=== PATIENT | female | born 1960 | race Caucasian/White ===

== ENCOUNTER 2018-01-23 01:51 | Inpatient (IN) | payer OTHER ==
[~2018-01-23] VITALS: Ht 165.1 cm; Wt 56.4 kg
[~2018-01-23 01:51] MED LIST: ALBUTEROL0.09 MG/A1 INH; ALEVE220 MG PO; CALCIUM 600600 M1 PO; DILAUDID 4 MG TA4 MG PO; MAALOX PLUS30 ML PO; MAGNESIUM250 M1 PO; MS CONTIN15 MG PO; PERCOCET 325 MG1 TA2 PO; VENTOLIN1 PUF INH; VITAB121000 PO; VITAMIN C500 M3 PO; VITAMIN D32000 IU PO
--- NOTE | 2018-01-23 01:57 | ED PSYCHIATRIC COMPLAINT ---
See Addendum History of Present Illness General Chief Complaint: Psychiatric Related Complaint Stated Complaint: SI Source: patient, old records, EMS Exam Limitations: no limitations, intoxication Vital Signs & Intake/Output Vital Signs & Intake/Output Vital Signs Date Time Temp Pulse Resp B/P B/P Pulse O2 O2 Flow FiO2 Mean Ox Delivery Rate 01/23 0631 97.5 89 16 141/69 100 Room Air 01/23 0430 96.2 66 18 109/63 96 Room Air 01/23 0210 Room Air 01/23 0206 96.4 66 18 126/64 97 Room Air Reconcile Medications Albuterol Sulfate (Albuterol Sulfate Hfa) 0.09 MG/Actuation DONTRELL 2 PUFF INH Q4- 6 PRN PRN SHORTNESS OF BREATH 90 MCG PER PUFF Ascorbic Acid (Vitamin C) 500 MG TAB 1 TAB PO DAILY SUPPLEMENT (Reported) Calcium Carbonate (Calcium 600) 600 MG TAB 2,000 MG PO DAILY SUPPLEMENT ( Reported) Cyanocobalamin (Vitamin B-12) (Unknown Strength) TAB (Unknown Dose) PO DAILY SUPPLEMENT (Reported) Magnesium (Unknown Strength) TAB (Unknown Dose) PO DAILY SUPPLEMENT (Reported ) Triage Nurses Notes Reviewed? yes HPI: Patient took approximately 60 Chantix, 2 Percocet and 1 other pill that she doesn't know what it was as well as alcohol in an effort to kill herself. Patient states she did this because of income tax and that it is the IRS's fault. Patient denies ever having attempted anything in the past. Patient denies homicidal ideation. (Vicente PRO,Rocael Reardon) Allergies Coded Allergies: Iodinated Contrast- Oral and IV Dye (UNKNOWN 01/23/18) amoxicillin (UNKNOWN 01/23/18) niacin (FELT LIKE BODY ON FIRE FOR HOURS, FAINTING 01/23/18) (Odell Argueta DO) Past History Travel History Traveled to [place] past 21 day No Medical History Any Pertinent Medical History? 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 No (Vicente PRO,Rocael Reardon) Review of Systems Review of Systems Constitutional: Reports: no symptoms. EENTM: Reports: no symptoms. Respiratory: Reports: no symptoms. Cardiovascular: Reports: no symptoms. GI: Reports: see HPI, nausea, vomiting. Genitourinary: Reports: no symptoms. Musculoskeletal: Reports: no symptoms. Skin: Reports: no symptoms. Neurological/Psychological: Reports: see HPI, depressed. Hematologic/Endocrine: Reports: no symptoms. Immunologic/Allergic: Reports: no symptoms. All Other Systems: Reviewed and Negative (Vicente PRO,Rocael Reardon) Physical Exam Physical Exam General Appearance: well developed/nourished, mild distress Head: atraumatic Eyes: Bilateral: PERRL, EOMI. Ears, Nose, Throat: normal pharynx, normal ENT inspection, hearing grossly normal Neck: normal inspection, supple Respiratory: normal breath sounds Cardiovascular: regular rate/rhythm Gastrointestinal: soft, non-tender Extremities: normal range of motion Neurological/Psychiatric: no motor/sensory deficits, awake, alert, oriented x 3 Appearance/Memory/Insight: appropriate appearance, appropriate insight Behavoir/Eye Contact/Speech: cooperative, normal speech, good eye contact Thoughts/Hallucinations: normal thought pattern, no apparent hallucination Skin: intact, normal color, warm/dry SAD PERSONS Done? CRISIS CONSULT OBTAINED (Vicente PRO,Rocael Reardon) Progress Differential Diagnosis: drug intoxication, drug overdose, drug withdrawal, electrolyte abnormality Plan of Care: Orders Procedure Date/time Status Regular Diet 01/23 B Active Add-on Test (ER Only) 01/24 208 Active Continuous Observation Monitor 01/24 156 Active URINE DRUGS OF ABUSE 01/24 156 Complete URINALYSIS 01/24 156 Complete ACETOMINOPHEN 01/24 156 Complete TROPONIN LEVEL 01/24 156 Complete ETHANOL 01/24 156 Complete COMPREHENSIVE METABOLIC PANEL 01/24 156 Complete CBC WITHOUT DIFFERENTIAL 01/24 156 Complete EKG 01/24 156 Active ED CRISIS PSYCH CONSULT 01/24 156 Active Laboratory Tests 01/23/18 0335: Urine Opiates Screen 963.00, Methadone Screen < 40, Barbiturate Screen < 60, Ur Phencyclidine Scrn < 6.00, Amphetamines Screen < 100, U Benzodiazepines Scrn < 85, Urine Cocaine Screen < 50, Urine Cannabis Screen 33.00, Urine Color YEL, Urine Clarity CLEAR, Urine pH 6.0, Ur Specific [place] >= 1.030, Urine Protein NEG, Urine Ketones 15 H, Urine Nitrite NEG, Urine Bilirubin NEG, Urine Urobilinogen 0.2, Ur Leukocyte Esterase NEG, Ur Microscopic EXAM NOT REQUIRED, Urine Hemoglobin NEG, Urine Glucose NEG 01/23/18 0210: Anion Gap 23 H, Estimated GFR > 60, BUN/Creatinine Ratio 20.0, Glucose 129 H, Calcium 9.5, Total Bilirubin 0.8, AST 28, ALT 20, Alkaline Phosphatase 95, Troponin I < 0.01, Total Protein 7.6, Albumin 4.9, Globulin 2.7, Albumin/ Globulin Ratio 1.8, CBC w Diff NO MAN DIFF REQ, MPV 6.5 L, Gran % 61.5, Lymphocytes % 33.8, Monocytes % 3.3, Eosinophils % 0.6, Basophils % 0.8, Absolute Granulocytes 5.4, Absolute Lymphocytes 3.0, Absolute Monocytes 0.3, Absolute Eosinophils 0.1, Absolute Basophils 0.1, Acetaminophen < 10.0 L, Serum Alcohol 230.0 Hand-Off Endorsed To: Odell Argueta DO Endorsed Time: 0700 Pending: consult (Vicente PRO,Rocale Reardon) Departure Departure Disposition: STILL A PATIENT Condition: Stable Clinical Impression Primary Impression: Suicide attempt Referrals: Torin Koch MD (PCP/Family) Departure Forms: Customer Survey General Discharge Information (Vicente PRO,Rocael Reardon) Departure Comments 01/23/18 7:50 AM The patient was signed out to me by Dr. Boyd. She status post Chantix overdose. She's been medically cleared. She is pending crisis evaluation. (Odell Argueta DO)
[2018-01-23 02:19] LABS: ABSOLUTE BASOPHIL COUNT 0.1 /CUMM (0.0-0.2); ABSOLUTE EOSINOPHIL COUNT 0.1 /CUMM (0.0-0.7); ABSOLUTE GRANULOCYTE CT 5.4 /CUMM (1.4-6.5); ABSOLUTE MONOCYTE COUNT 0.3 /CUMM (0.10-0.60); BASOPHIL % 0.8 % (0.0-2.0); EOSINOPHIL % 0.6 % (0-5); MEAN PLATELET VOLUME 6.5 FL (7.4-10.4); PLATELET COUNT 496 /CUMM (130-400)
[2018-01-23 02:55] LABS: GRANULOCYTE % 61.5 % (42.2-75.2); HEMATOCRIT 42 % (37-47)
[2018-01-23 02:56] LABS: WHITE BLOOD CELL COUNT 8.8 /CUMM (4.8-10.8)
--- NOTE | 2018-01-23 12:31 | ED PSYCH CRISIS CONSULTATION ---
Crisis Consult Basic Assessment Date of Consult: 01/23/18 Responsible Person/Accompanied By: brotherCarrington Insurance Authorization: Insurance #1: Insurance name: SELF-PAY Phone number: Policy number: Group number: Authorization number: ED Provider: Patient's ED Provider: Odell Argueta DO Primary Care Physician: Patient's PCP: Torin Koch MD PCP's Current Psychiatrist: none Chief Complaint: Psychiatric Related Financial stress Patient's Quote: "I am screwed financially" Present Illness: Patient is a 57 year old , who called ambulance after she had taken Chantix (she thinks 60 tabs) and 2 percocets, after having had a considerable amount to drink in order to "get up the courage to take the pills. 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 Patient reports that she just barely gets by on the money that she has, and that she has no insurance, and has no idea how she can pay the IRS. Patient lives alone, since her had about 15 years ago. Patient has minimal pension from ($200.00/month), and has a number of physical problems including serious pain, osteoporosis, and pain from a broken arm years ago. Patient states that she sees herself in a wheelchair in the future, and indicates that she has no one to help her, nor provide any real support. Patient reports having had 2 relationships since when she was 38, but states that "one broke my heart, and the other was not a good match". Patient states that gradually her friends drifted away after husbands , as they were couples. She also states that dating world is not "a good place for someone like me to be". Patient states that her family are involved with their own problems, and she is horrified that they will find out, and does not want to cause them any problems. Patient had seen a psychiatrist after her suddenly from a heart attack, and was on anti-depressant. She improved over a couple years and stopped. No other psychiatric treatment. Patient had some physical pain, and was on percocet and fentanyl, but weaned self off. Patient states that she does have 2 drinks (vodka) many nights, and this has occurred over the past 7 years. Patient denies any other substance use, stating that she had had 2 "left over percocets" that she took last night. Patient is fully alert and oriented x 3. Patient's Address: [address] [place] [address] Other Phone Number: Who Do You Live With? Patient/Self Family/Informants Interviewed: brother, Carrington Adrian Allergies - Coded Allergies: Iodinated Contrast- Oral and IV Dye (UNKNOWN 01/23/18) amoxicillin (UNKNOWN 01/23/18) niacin (FELT LIKE BODY ON FIRE FOR HOURS, FAINTING 01/23/18) Current Medications - Scheduled Medications Ascorbic Acid (Vitamin C) 500 MG TAB 1 TAB PO DAILY SUPPLEMENT (Reported) Entered as Reported by Esperanza Solis on 09/28/152147 Calcium Carbonate (Calcium 600) 600 MG TAB 2,000 MG PO DAILY SUPPLEMENT ( Reported) Entered as Reported by Esperanza Solis on 09/28/152147 Cyanocobalamin (Vitamin B-12) (Unknown Strength) TAB (Unknown Dose) PO DAILY SUPPLEMENT (Reported) Entered as Reported by Esperanza Solis on 09/28/152146 Magnesium (Unknown Strength) TAB (Unknown Dose) PO DAILY SUPPLEMENT (Reported ) Entered as Reported by Esperanza Solis on 09/28/152146 Scheduled PRN Medications Albuterol Sulfate (Albuterol Sulfate Hfa) 0.09 MG/Actuation DONTRELL 2 PUFF INH Q4- 6 PRN PRN SHORTNESS OF BREATH #1 DONTRELL Prescribed by Milady Dinh on 10/04/15 Laboratory Results: Laboratory Tests 01/23/18 0335: Urine Opiates Screen 963.00, Methadone Screen < 40, Barbiturate Screen < 60, Ur Phencyclidine Scrn < 6.00, Amphetamines Screen < 100, U Benzodiazepines Scrn < 85, Urine Cocaine Screen < 50, Urine Cannabis Screen 33.00, Urine Color YEL, Urine Clarity CLEAR, Urine pH 6.0, Ur Specific [place] >= 1.030, Urine Protein NEG, Urine Ketones 15 H, Urine Nitrite NEG, Urine Bilirubin NEG, Urine Urobilinogen 0.2, Ur Leukocyte Esterase NEG, Ur Microscopic EXAM NOT REQUIRED, Urine Hemoglobin NEG, Urine Glucose NEG 01/23/18 0210: Anion Gap 23 H, Estimated GFR > 60, BUN/Creatinine Ratio 20.0, Glucose 129 H, Calcium 9.5, Total Bilirubin 0.8, AST 28, ALT 20, Alkaline Phosphatase 95, Troponin I < 0.01, Total Protein 7.6, Albumin 4.9, Globulin 2.7, Albumin/ Globulin Ratio 1.8, CBC w Diff NO MAN DIFF REQ, MPV 6.5 L, Gran % 61.5, Lymphocytes % 33.8, Monocytes % 3.3, Eosinophils % 0.6, Basophils % 0.8, Absolute Granulocytes 5.4, Absolute Lymphocytes 3.0, Absolute Monocytes 0.3, Absolute Eosinophils 0.1, Absolute Basophils 0.1, Acetaminophen < 10.0 L, Serum Alcohol 230.0 Past History Past Medical History Neurological: NONE EENT: NONE Cardiovascular: NONE Respiratory: asthma, bronchitis Gastrointestinal: INDIGESTION Hepatic: NONE Renal: NONE Musculoskeletal: fracture, osteoporosis Psychiatric: alcohol dependence, anxiety, depression Endocrine: NONE Blood Disorders: NONE Cancer(s): NONE 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 Reason for Treatment husbands sudden . Dates of Treatment 9169-0657 Response to Treatment good Diagnosis by History: depression adjustment issues Substance Use/Abuse History Drug Use/Abuse Substances Used/Abused Yes Substance Used/Abused Alcohol First Use 17 Last Used yesterday How much used/taken patient states has 2 drinks vodka at night, 4-5 nights/ wk. How often 4-5 nights/wk. For how long past 7 years Route of use p.o. Substance Abuse Treatment Substance Abuse Treatment Past Substance Abuse [place] No Current Mental Status Mental Status Orientation: Person, Place, Situation Affect: Anxious, Sad Speech: WNL Neuro-vegetative: WNL Appearance Appearance- Dress/Hygiene: appears stated age Behaviors Thought Process: Logical/Rational Thought Content: WNL Memory: WNL Insight: Fair SI/HI Risk Assessment Past Suicidal Ideation/Attempts No Current Suicidal Ideation/Att Yes Past Homicidal Ideation/Att: No Current Homicidal Ideation/Attempts No Degree of Intent: Made Preparations (took overdose) Danger To: Self Risk Factors: access to lethal means, high anxiety/distress, isolate/no social support, lives alone, limited support Lethality Ratin PTSD Checklist PTSD Done? patient declined ED Management Sitter: Yes Restraints: No DSM5/PS Stressors/Medical Prob Diagnosis' (DSM 5, Stressors, Medical): Unspecified Depressive D.O. F 32.9 Current GAF: 27 Comments: patient has many stressors Departure Disposition Psych Medical Clearance Date: 01/23/18 Medically Cleared at: 1110 Time Started: 1115 Time Ended: 1200 Psychiatrist Consulted: Wally Mccarty MD Date Disposition Established: 01/23/18 Time Disposition Established: 1255 Plan for Disposition - Modality: Inpatient Psychiatry Facility: [facility] Rationale for Disposition: patient s/p overdose and suicide attempt Referrals Torin Koch MD (PCP/Family)
[2018-01-23 13:39] VITALS: BP 133/70
--- NOTE | 2018-01-23 15:21 | IP CRISIS DIAG ASSESS PSYCH ---
Diagnostic Assessment Basic Assessment Insurance Authorization: Insurance #1: Insurance name: SELF-PAY Phone number: Policy number: [id number] Group number: Authorization number: submitted. Primary Care Physician: Patient's PCP: Torin Koch MD PCP's Patient's Quote: "I am screwed financially" Present Illness: Patient is a 57 year old , who called ambulance after she had taken Chantix (she thinks 60 tabs) and 2 percocets, after having had a considerable amount to drink in order to "get up the courage to take the pills. 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 Patient reports that she just barely gets by on the money that she has, and that she has no insurance, and has no idea how she can pay the IRS. Patient lives alone, since her had about 15 years ago. Patient has minimal pension from ($200.00/month), and has a number of physical problems including serious pain, osteoporosis, and pain from a broken arm years ago. Patient states that she sees herself in a wheelchair in the future, and indicates that she has no one to help her, nor provide any real support. Patient reports having had 2 relationships since when she was 38, but states that "one broke my heart, and the other was not a good match". Patient states that gradually her friends drifted away after husbands , as they were couples. She also states that dating world is not "a good place for someone like me to be". Patient states that her family are involved with their own problems, and she is horrified that they will find out, and does not want to cause them any problems. Patient had seen a psychiatrist after her suddenly from a heart attack, and was on anti-depressant. She improved over a couple years and stopped. No other psychiatric treatment. Patient had some physical pain, and was on percocet and fentanyl, but weaned self off. Patient states that she does have 2 drinks (vodka) many nights, and this has occurred over the past 7 years. Patient denies any other substance use, stating that she had had 2 "left over percocets" that she took last night. Patient is fully alert and oriented x 3. Patient's Address: [address] [place] [address] Other Phone Number: Who Do You Live With? Patient/Self Feel Safe Where You Live? Yes Feel Safe in Your Relationship Yes Marital Status: Do You Have Children? No Primary Language? Colombian Language(s) Spoken At Home: Colombian Family/Informants Interviewed: brother, Carrington Adrian Allergies - Coded Allergies: Iodinated Contrast- Oral and IV Dye (UNKNOWN 01/23/18) amoxicillin (UNKNOWN 01/23/18) niacin (FELT LIKE BODY ON FIRE FOR HOURS, FAINTING 01/23/18) Current Medications - Scheduled Medications Ascorbic Acid (Vitamin C) 500 MG TAB 1 TAB PO DAILY SUPPLEMENT (Reported) Entered as Reported by Esperanza Solis on 09/28/152147 Calcium Carbonate (Calcium 600) 600 MG TAB 2,000 MG PO DAILY SUPPLEMENT ( Reported) Entered as Reported by Esperanza Solis on 09/28/152147 Cyanocobalamin (Vitamin B-12) (Unknown Strength) TAB (Unknown Dose) PO DAILY SUPPLEMENT (Reported) Entered as Reported by Esperanza Solis on 09/28/152146 Magnesium (Unknown Strength) TAB (Unknown Dose) PO DAILY SUPPLEMENT (Reported ) Entered as Reported by Esperanza Solis on 09/28/152146 Scheduled PRN Medications Albuterol Sulfate (Albuterol Sulfate Hfa) 0.09 MG/Actuation DONTRELL 2 PUFF INH Q4- 6 PRN PRN SHORTNESS OF BREATH #1 DONTRELL Prescribed by Milady Dinh on 10/04/15 Consequences of Psych Med Use: not on meds Lab Results: Laboratory Tests 01/23/18 0335: Urine Opiates Screen 963.00, Methadone Screen < 40, Barbiturate Screen < 60, Ur Phencyclidine Scrn < 6.00, Amphetamines Screen < 100, U Benzodiazepines Scrn < 85, Urine Cocaine Screen < 50, Urine Cannabis Screen 33.00, Urine Color YEL, Urine Clarity CLEAR, Urine pH 6.0, Ur Specific [place] >= 1.030, Urine Protein NEG, Urine Ketones 15 H, Urine Nitrite NEG, Urine Bilirubin NEG, Urine Urobilinogen 0.2, Ur Leukocyte Esterase NEG, Ur Microscopic EXAM NOT REQUIRED, Urine Hemoglobin NEG, Urine Glucose NEG 01/23/18 0210: Anion Gap 23 H, Estimated GFR > 60, BUN/Creatinine Ratio 20.0, Glucose 129 H, Hemoglobin A1c 5.1, Calcium 9.5, Total Bilirubin 0.8, AST 28, ALT 20, Alkaline Phosphatase 95, Troponin I < 0.01, Total Protein 7.6, Albumin 4.9, Globulin 2.7, Albumin/Globulin Ratio 1.8, Triglycerides 440 H, Cholesterol 152, LDL Cholesterol Direct 46.22, LDL Cholesterol, Calc ND, HDL Cholesterol 55, Cholesterol/HDL Ratio 3, TSH &T3 &Free T4 Intrp 2.050, CBC w Diff NO MAN DIFF REQ, MPV 6.5 L, Gran % 61.5, Lymphocytes % 33.8, Monocytes % 3.3, Eosinophils % 0.6, Basophils % 0.8, Absolute Granulocytes 5.4, Absolute Lymphocytes 3.0, Absolute Monocytes 0.3, Absolute Eosinophils 0.1, Absolute Basophils 0.1, Acetaminophen < 10.0 L, Serum Alcohol 230.0 Toxicology Screen Completed? Yes Results: positive Symptoms of Use: patient drinks 4-5 nights per week. patient also took 2 percocets from previous prescription Past History Past Medical History Medical History: osteoporsis Abuse/Trauma History Trauma History/Current Trauma: Denies Legal History Current Legal Status: none Have you ever been arrested? No Number of Arrests: 0 Psychosocial History Strengths/Capabilities: patient has been employed for many years patient has been self reliant Physical Limitations (Interventions): has mobility issues Psychiatric Treatment History Psych Treatment Psychiatric Treatment Yes Inpatient Treatment No Outpatient Treatment Yes Location of Treatment [place] Reason for Treatment husbands sudden . Dates of Treatment 5531-7451 Response to Treatment good Diagnosis by History: depression adjustment issues Risk Factors: access to lethal means, high anxiety/distress, isolate/no social support, lives alone, limited support Substance Use/Abuse History Drug Use/Abuse minimum 12mo Hx Substances Used/Abused Yes Substance Used/Abused Alcohol First Use 16 Last Used yesterday How much used/taken patient states has 2 drinks vodka at night, 4-5 nights/ wk. How often 4-5 nights/wk. For how long past 7 years Route of use p.o. Substance Abuse Treatment Substance Abuse Treatment Past Substance Abuse [place] No Sexual History Sexually Active No Sexual Orientation Heterosexual Current Mental Status Mental Status Orientation: Person, Place, Situation Affect: Anxious, Sad Speech: WNL Neuro-vegetative: WNL Appearance Appearance- Dress/Hygiene: appears stated age Behaviors Thought Process: Logical/Rational Thought Content: WNL Memory: WNL Insight: Fair SI/HI Risk Assessment - Minimum 6mo History- Past Suicidal Ideation/Attempts No Current Suicidal Ideation/Att Yes Past Homicidal Ideation/Att: No Current Homicidal Ideation/Attempts No Degree of Intent: Made Preparations (took overdose) Danger To: Self Risk Factors: access to lethal means, high anxiety/distress, isolate/no social support, lives alone, limited support Lethality Ratin Needs/Init [place] Plan/Goals: Admit to [facility] due to overdose. Danger to self Medication and psychiatric evaluation. Group and individual therapy Arrange family meeting, although patient is resistant at present assist patient with insurance application coordinate follow-up treatment, with consideration of financial situation and obligations. AUDIT-C Questionnaire: AUDIT-C Questionnaire: Response Value ETOH use in the past year 4 or more per week 4 # drinks typical/day 3 or 4 1 6 or > drinks per occasion Less than monthly 1 Total 6 DSM5/PS Stressors/Medical Prob Diagnosis' (DSM 5, Stressors, Medical): Unspecified Depressive D.O. F 32.9 Current GAF: 27 Comments: patient has many stressors
[2018-01-23 15:42] VITALS: BP 135/79
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
[2018-01-23 17:23] VITALS: BP 135/84
[2018-01-23 17:25] VITALS: BP 135/84
[2018-01-23] MEDS ORDERED: MULTIVITAMINS1 EAC9 PO (18:02)
[2018-01-23] MEDS ORDERED: CALCIUM PO (18:07)
[2018-01-23] MEDS ORDERED: VITAMIN D3400 UNI1 PO (18:09)
[2018-01-23 20:00] VITALS: BP 145/91
[2018-01-23 20:08] VITALS: BP 145/91
--- NOTE | 2018-01-23 20:38 | History & Physical ---
General Information and HPI MD Statement: I have seen and personally examined CANDICE LOMAS and documented this H&P. The patient is a 57 year old F who presented with a patient stated chief complaint of [ medical evaluation ]. Source of Information: patient Exam Limitations: no limitations History of Present Illness: 57 Y O F with PMHx osteoporosis (premature menopause and Prednisone treatment in the past for PMR), multiple fractures presented in ER for SI and depression. She took approximately 60 Chantix, 2 Percocet and 1 other pill that she doesn't know. No complains. currently feeling better, no SI, HI or hallucinations. She smoke 1/2 to 1 PPD. She drinks 4 times a week, 2 drinks daily Denied illicit drugs. No CP/ Cough / fever/ chills / N/ V/ D / skin rash/ Urinary symptoms/ abdo pain. Allergies/Medications Allergies: Coded Allergies: Iodinated Contrast- Oral and IV Dye (UNKNOWN 01/23/18) amoxicillin (UNKNOWN 01/23/18) niacin (FELT LIKE BODY ON FIRE FOR HOURS, FAINTING 01/23/18) Home Med list Ascorbic Acid (Vitamin C) 500 MG TAB 1 TAB PO DAILY SUPPLEMENT (Reported) [CALCIUM] 1 TAB PO DAILY SUPPLEMENT (Reported) Cholecalciferol (Vitamin D3) (Vitamin D3) 400 UNIT TABLET 3 TAB PO DAILY SUPPLEMENT (Reported) Cyanocobalamin (Vitamin B-12) (Unknown Strength) TAB (Unknown Dose) PO DAILY SUPPLEMENT (Reported) Magnesium (Unknown Strength) TAB (Unknown Dose) PO DAILY SUPPLEMENT (Reported ) Multiple Vitamin (Multivitamins) 1 EACH TABLET 1 TAB PO DAILY SUPPLEMENT ( Reported) Compliance With Home Meds: GOOD Past History Travel History Traveled to [place] past 21 day No Medical History Neurological: NONE EENT: NONE Cardiovascular: NONE Respiratory: asthma, bronchitis, SMOKER Gastrointestinal: GERD Hepatic: NONE Renal: NONE Musculoskeletal: osteoporosis, FRACTURE RIGHT LEG 2011 FRACTURE RIGHT ARM 2016 Psychiatric: alcohol dependence, anxiety, depression Endocrine: NONE Blood Disorders: NONE Cancer(s): NONE 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 Home Who Do You Live With? self Services at Home: None Primary Language: Serbian Smoking Status: Current Everyday Smoker ETOH Use: heavy use Illicit Drug Use: denies illicit drug use Functional Ability ADLs Independent: dressing, eating, toileting, bathing. Ambulation: independent IADLs Independent: shopping, housework, finances, food prep, telephone, transportation , medication admin. 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 Exam & Diagnostic Data Last 24 Hrs of Vital Signs/I&O Vital Signs Date Time Temp Pulse Resp B/P B/P Pulse O2 O2 Flow FiO2 Mean Ox Delivery Rate 01/24 2008 99.2 97 145/91 01/24 2000 99.2 97 145/91 01/23 1725 99.5 78 135/84 01/23 1723 99.5 78 135/84 01/23 1542 98.0 80 18 135/79 01/23 1541 98.0 80 18 135/79 01/23 1339 98.4 81 18 133/70 01/23 1315 98.4 81 18 133/70 97 01/23 1029 98.0 97 18 124/73 97 Room Air 01/23 0822 98.4 88 22 131/80 98 Room Air 01/23 0631 97.5 89 16 141/69 100 Room Air 01/23 0430 96.2 66 18 109/63 96 Room Air 01/23 0210 Room Air 01/23 0206 96.4 66 18 126/64 97 Room Air Intake & Output 01/23 0000 01/23 0800 01/23 1600 Intake Total 2000 Output Total Balance 1999 Intake, IV 1999 Patient 58.967 kg Weight Physical Exam General Appearance Alert, Oriented X3, Cooperative, No Acute Distress Skin No Rashes, No Breakdown HEENT Atraumatic, PERRLA, EOMI, Mucous Membr. moist/pink Neck Supple, No JVD, No thryomegaly Lymphatic Axillary nl, Cervical nl Cardiovascular Regular Rate, Normal S1, Normal S2, No Murmurs Lungs Clear to Auscultation, Normal Air Movement Abdomen Normal Bowel Sounds, Soft, No Tenderness Neurological Exam Findings: Normal Gait, Normal Speech, Strength at 5/5 X4 Ext, Normal Tone, Sensation Intact, Cranial Nerves 3-12 NL, Reflexes 2+ Cranial Nerves II through XII: 3 to 12 intact Extremities No Clubbing, No Cyanosis, No Edema, Normal Pulses, No Tenderness/ Swelling Vascular Normal Pulses, Pulses Symmetrical Last 24 Hrs of Labs/Kei: Laboratory Tests 01/23/18334: Urine Test NEGATIVE 01/23/18334: Urine Opiates Screen 963.00, Methadone Screen < 40, Barbiturate Screen < 60, Ur Phencyclidine Scrn < 6.00, Amphetamines Screen < 100, U Benzodiazepines Scrn < 85, Urine Cocaine Screen < 50, Urine Cannabis Screen 33.00, Urine Color YEL, Urine Clarity CLEAR, Urine pH 6.0, Ur Specific [place] >= 1.030, Urine Protein NEG, Urine Ketones 15 H, Urine Nitrite NEG, Urine Bilirubin NEG, Urine Urobilinogen 0.2, Ur Leukocyte Esterase NEG, Ur Microscopic EXAM NOT REQUIRED, Urine Hemoglobin NEG, Urine Glucose NEG 01/23/18 0210: Anion Gap 23 H, Estimated GFR > 60, BUN/Creatinine Ratio 20.0, Glucose 129 H, Hemoglobin A1c 5.1, Calcium 9.5, Total Bilirubin 0.8, AST 28, ALT 20, Alkaline Phosphatase 95, Troponin I < 0.01, Total Protein 7.6, Albumin 4.9, Globulin 2.7, Albumin/Globulin Ratio 1.8, Triglycerides 440 H, Cholesterol 152, LDL Cholesterol Direct 46.22, LDL Cholesterol, Calc ND, HDL Cholesterol 55, Cholesterol/HDL Ratio 3, TSH &T3 &Free T4 Intrp 2.050, CBC w Diff NO MAN DIFF REQ, MPV 6.5 L, Gran % 61.5, Lymphocytes % 33.8, Monocytes % 3.3, Eosinophils % 0.6, Basophils % 0.8, Absolute Granulocytes 5.4, Absolute Lymphocytes 3.0, Absolute Monocytes 0.3, Absolute Eosinophils 0.1, Absolute Basophils 0.1, Acetaminophen < 10.0 L, Serum Alcohol 230.0 Assessment/Plan Assessment: # SI and Depression : agree with Psych plan # Anion gap acidosis : secondary to alcohol, continue oral hydration # Cold agglutinin and Thrombocytosis : repeat CBC in Am # high Triglyceride : fasting lipid profile # Osteoporosis : patient currently not on any treatment because of insurance issues. As Ranked By This Provider Problem List: 1. Suicide attempt 2. Alcohol abuse 3. Depression Miscellaneous Miscellaneous Documentation Attending Case Discussed With: Wally Mccarty MD Primary Care Physician: Torin Koch MD Patient sees these Specialists None Level of Patient Care: ELIZA Sidhu Attending MD Review Statement Attending Statement Attending MD Statement: I interviewed and noted H and P
[2018-01-24] VITALS (8 sets, daily range): BP systolic 140–147; BP diastolic 78–96
--- NOTE | 2018-01-24 08:05 | CPS PROVIDER INIT ASMT PSYCH ---
Psychiatric Admission Ground Wirer's Note Reviewed: Yes Patient Seen and Examined: Yes Identifying Information: Barbie Schultz is a 57-year-old female Chief Complaint: "I am screwed financially" Reaction to Hospitalization: pt. admitted voluntarily History of Present Illness Onset of Illness: called ambulance after she had taken Chantix (she thinks 60 tabs) and 2 percocets, after having had a considerable amount to drink in order to "get up the courage to take the pills. 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 Patient reports that she just barely gets by on the money that she has, and that she has no insurance, and has no idea how she can pay the IRS. Patient lives alone, since her had about 15 years ago. Patient has minimal pension from ($200.00/month), and has a number of physical problems including serious pain, osteoporosis, and pain from a broken arm years ago. Patient states that she sees herself in a wheelchair in the future, and indicates that she has no one to help her, nor provide any real support. Circumstances Leading to Admission: Overdose on Chantix and Percocets Problem(s) Justifying Need for Admission: Overdose on Chantix and Percocets Other HPI: Patient reports having had 2 relationships since when she was 38, but states that "one broke my heart, and the other was not a good match". Patient states that gradually her friends drifted away after husbands , as they were couples. She also states that dating world is not "a good place for someone like me to be". Patient states that her family are involved with their own problems, and she is horrified that they will find out, and does not want to cause them any problems. Patient had seen a psychiatrist after her suddenly from a heart attack, and was on anti-depressant. She improved over a couple years and stopped. No other psychiatric treatment. Patient had some physical pain, and was on percocet and fentanyl, but weaned self off. Patient states that she does have 2 drinks (vodka) many nights, and this has occurred over the past 7 years. Patient denies any other substance use, stating that she had had 2 "left over percocets" that she took last night. Past Psychiatric History Past Diagnosis(es)- if any: depression adjustment issues Past Precipitating Factors- if any: Mood seems that drinking was at least partly part of the precipitating factors. Also financial difficulties. - Include inpatient and outpatient treatment Treatment History: Ella the patient received the outpatient psychiatric treatment in the [facility] in 1998 and 2000 reportedly following her 's sudden . History of Suicide Attempts or Gestures Reportedly this was her first suicide attempt. Substance Abuse History: Alcohol use disorder. Denied abusing opiates. Allergies: Coded Allergies: Iodinated Contrast- Oral and IV Dye (UNKNOWN 01/23/18) amoxicillin (UNKNOWN 01/23/18) niacin (FELT LIKE BODY ON FIRE FOR HOURS, FAINTING 01/23/18) Home Med List: Ascorbic Acid (Vitamin C) 500 MG TAB 1 TAB PO DAILY SUPPLEMENT (Reported) Entered as Reported by Esperanza Solis on 09/28/152147 Calcium Carbonate (Calcium 600) 600 MG TAB 2,000 MG PO DAILY SUPPLEMENT ( Reported) Entered as Reported by Esperanza Solis on 09/28/152147 Cyanocobalamin (Vitamin B-12) (Unknown Strength) TAB (Unknown Dose) PO DAILY SUPPLEMENT (Reported) Entered as Reported by Esperanza Solis on 09/28/152146 Magnesium (Unknown Strength) TAB (Unknown Dose) PO DAILY SUPPLEMENT (Reported ) Entered as Reported by Esperanza Solis on 09/28/152146 Scheduled PRN Medications Albuterol Sulfate (Albuterol - Include any medical condition(s) that may - impact the patient's recovery/remission Past Medical History: Osteoporosis due to premature menopause and past prednisone treatment history of fractures. 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 Other Medical Hx: Polymyalgia rheumatica History of MRSA: No History of VRE: No History of CDIFF: No Isolation History: Standard Influenza Vaccine: 07/01/17 Surgical History Surgical History: orthopedic surgeries multiple Psychiatric Family/Social Hx Family History Psychiatric Illness: unknown Substance Use: unknown Suicides: unknown Social History Living Situation: Patient lives alone Significant Relationships (family/friends): Her brother Carrington Adrian Education: not explored 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 - #1 Recognizing dangerous situations. - #2 Coping Skills. - #3 Basic information about quitting. Status of Tobacco Cessation Counseling: #1, #2 AND #3 Completed Cessation Med Status Nicotine Patch Ordered Alcohol Screening - ETOH screen POS if BAL >=80 or Audit-C>= M4/F3 Audit-C Score from Diag Assess: 6 Blood Alcohol Level: Laboratory Tests 01/23 0210 Toxicology Serum Alcohol (<10 MG/DL) 230.0 Alcohol Use Screening Results: Pos per Audit C &/or BAL - If ETOH counseling indicated - the following topics are required. - #1 Express concern about the patient's - drinking at unhealthy levels, include informing - of national norms for moderate drinking: - men <= 14 drinks/week, max 4 drinks/occasion - women <= 7 drinks/week, max 3 drinks/occasion - #2 Providing feedback, including linking alcohol to - negative physical effects (liver injury, hypertension) - negative emotional effects (relationship problems and - depression) - negative occupational consequences (reduced work - performance) - #3 Advising the patient to abstain from alcohol or - to drink below national norms for moderate drinking - (as listed above). Status of ETOH Use Counseling: #1, #2 AND #3 Completed. Metabolic Screening - Screen if on a Neuroleptic Medication - Metabolic screening should include: - Blood Pressure, BMI, Glucose or Hgb A1c, & a - Lipid profile from within the past 365 days. Metabolic Screening ([X]) Not Applicable, patient not on a neuroleptic. Exam and Plan Mental Status Examination Ambulation Status: Mobile with a steady gait Appearance: Unremarkable Attitude towards examiner: Calm and cooperative Psychomotor activity: Normal psychomotor activity Behavior: No abnormal behaviors Quality of speech: Normal speech, not pressured, not slurred Affect: Good range of affect Mood: Depressed Suicidal Ideation: Denied thoughts of suicide today Homicidal Ideation: Denied thoughts of homicide today Hallucinations: The patient denied hallucinations, she did not seem to be responding to internal stimuli. Paranoid/Delusional Material: The patient denies feeling paranoid, there were no delusions during the interview. Difficulties with thought organization: The patient did not have difficulties with thought organization, she was coherent. Insight: She seems to have partial insight. Judgment: She seems to have reasonable judgment. Orientation: She was alert and oriented to time, place, and person. Cognition: She is seems to have reasonable attention and concentration as well as good information processing. Memory Function: There was no evidence of short-term memory impairments. Estimate of intellectual functioning: Average Assets/Strengths Patient Identified Assets/Strengths: The patient is intelligent, likable, and has been independent/self-reliant. Impression/Plan Impression and Plan: A 57-year-old white female who presented to the emergency room after an overdose on Chantix and Percocet. She also was drinking at the time. She reported that she has been struggling with significant financial stress and a very limited social supports. This was her first suicide attempt. She has had received outpatient treatment following the of her 1998 - Include all active medical diagnosis that require tx DSM 5 Diagnosis(es): Unspecified depressive disorder Alcohol use disorder - Initial Tx Plan for Active Psych & Medical Conditions Treatment Plan: Inpatient psychiatric care with safety checks every 15 minutes Nursing assessments, vital signs, and patient education and Group therapy, milieu therapy, and activity therapy Biopsychosocial assessment, collateral information, and aftercare planning by TALENT ACQUISITION ASSOCIATE The patient will be evaluated daily by a psychiatrist to reevaluate mental status and monitor medications Continue monitoring for alcohol withdrawal with as needed doses of Ativan for signs of withdrawals. Start Naprosyn 500 mg every morning Reevaluate for possible discharge tomorrow - Factors that would help patient function - in a less restrictive setting. Factors: the patient will be discharged if she has 2 consecutive days without thoughts of suicide
[2018-01-24 08:17] LABS: ABSOLUTE BASOPHIL COUNT 0 /CUMM (0.0-0.2); ABSOLUTE EOSINOPHIL COUNT 0.1 /CUMM (0.0-0.7); ABSOLUTE GRANULOCYTE CT 6.8 /CUMM (1.4-6.5); ABSOLUTE LYMPH COUNT 2.2 /CUMM (1.2-3.4); ABSOLUTE MONOCYTE COUNT 0.7 /CUMM (0.10-0.60); BASOPHIL % 0.4 % (0.0-2.0); EOSINOPHIL % 0.9 % (0-5); GRANULOCYTE % 69.2 % (42.2-75.2); HEMATOCRIT 38.8 % (37-47); MEAN CORPUSCULAR HGB 32.8 PG (27.0-31.0); MEAN CORPUSCULAR HGB CONC 34.5 G/DL (33.0-37.0); MEAN CORPUSCULAR VOLUME 95.1 FL (81.0-99.0); MEAN PLATELET VOLUME 7.2 FL (7.4-10.4); PLATELET COUNT 387 /CUMM (130-400); RBC DISTRIBUTION WIDTH 13.2 % (11.5-14.5); RED BLOOD CELL CT 4.08 /CUMM (4.20-5.40); WHITE BLOOD CELL COUNT 9.9 /CUMM (4.8-10.8)
--- NOTE | 2018-01-24 15:01 | SOCIAL WORKER PROG NOTE PSYCH ---
Social Work Progress Note Progress Note Barbie stated she "freaked out" over issues with money and that's why she drank alot and took the overdose of Chantix. She reported that the Chantix amount was actually less than what she originally reported to Crisis when she came in. She now reports it was about 20 pills. She said she did something really "stupid" and that she was just feeling tired of "just surviving" at the time. She was referring to her financial issues. She shared that she is being reported to the IRS for not paying taxes the past 2 years. 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 She states she normally is positive and says things alway have a way of working themselves out and she gets through it. She doesn't know why she reacted this way and stated it is not her normal response to things. She feels embarrassed, "mortified" over all of this. She doesn't want anyone to know. She specifically stated her family will not know about this. She was also upset that her employer ([employer]) called for her on the patient phone. She refused to come to the phone and was upset that they had called the unit and found out that she was here. She is opting out of anyone knowing she is here. I tried to talk with her about how telling family or friends about what she is going through might be helpful. She said she told one of her sister's about her financial issues, but not everyone is aware. Asked her if she would want to try and get back on insurance while she is here. She stated she was not open to doing that right now, because she needs to get a 1099 form from her employer to acurately report her income. She is afraid they will be taking a close look at her due to everything happening with the state right now.
[2018-01-25 07:44] VITALS: BP 141/88
[2018-01-25 07:46] VITALS: BP 141/88
--- NOTE | 2018-01-25 08:50 | CP SOUTH PROGRESS NOTE PSYCH ---
Psych (Inpt) Progress Note Progress Note Mental Status Examination The patient was alert and oriented to time, place, and person. She had steady gait. She was calm and cooperative but focused on discharge. She showed normal psychomotor activity, there were no abnormal behaviors, Normal speech, not pressured, not slurred, Good range of affect. She reported that she was anxious and depressed, she denied thoughts of suicide today, she denied thoughts of homicide, patient denied hallucinations, she did not seem to be responding to internal stimuli. The patient denies feeling paranoid, there were no delusions during the interview. The patient did not have difficulties with thought organization, she was coherent. She seems to have partial insight. She seems to have reasonable judgment. She is seems to have reasonable attention and concentration as well as good information processing. There was no evidence of short-term memory impairments. Assessment: A 57-year-old white female who presented to the emergency room after an overdose on Chantix and Percocet. She also was drinking at the time. She reported that she has been struggling with significant financial stress and a very limited social supports. This was her first suicide attempt. She has had received outpatient treatment following the of her 1998 DSM 5 Diagnosis(es): Unspecified depressive disorder Alcohol use disorder Treatment Plan: Continue Inpatient psychiatric care with safety checks every 15 minutes Nursing assessments, vital signs, and patient education and Group therapy, milieu therapy, and activity therapy Biopsychosocial assessment, collateral information, and aftercare planning by [facility] The patient will be evaluated daily by a psychiatrist to reevaluate mental status and monitor medications Continue monitoring for alcohol withdrawal with as needed doses of Ativan for signs of withdrawals. Continue Naprosyn 500 mg every morning information processing. Memory Function: There was no evidence of short-term memory impairments. Estimate of intellectual functioning: Average Assets/Strengths Patient Identified Assets/Strengths: The patient is intelligent, likable, and has been independent/self-reliant. Impression/Plan Impression and Plan: A 57-year-old white female who presented to the emergency room after an overdose on Chantix and Percocet. She also was drinking at the time. She reported that she has been struggling with significant financial stress and a very limited social supports. This was her first suicide attempt. She has had received outpatient treatment following the of her 1998 - Include all active medical diagnosis that require tx DSM 5 Diagnosis(es): Unspecified depressive disorder Alcohol use disorder - Initial Tx Plan for Active Psych & Medical Conditions Treatment Plan: Inpatient psychiatric care with safety checks every 15 minutes Nursing assessments, vital signs, and patient education and Group therapy, milieu therapy, and activity therapy Biopsychosocial assessment, collateral information, and aftercare planning by HAND SPLITTER The patient will be evaluated daily by a psychiatrist to reevaluate mental status and monitor medications Continue monitoring for alcohol withdrawal with as needed doses of Ativan for signs of withdrawals. Start Naprosyn 500 mg every morning Reevaluate for possible discharge tomorrow - Factors that would help patient function - in a less restrictive setting. Factors:
--- NOTE | 2018-01-25 11:49 | SOCIAL WORKER PROG NOTE PSYCH ---
Social Work Progress Note Progress Note Barbie, Dr. Martin and I met together this morning. Talked to Barbie about our reluctance to d/c today without family contact for additional collateral. Talked about the purpose of obtaining additional feedback and letting us do our job to ensure safety. Also talked about how she is really rushing out of here and wanting to return to work. Talked about the importance of reflecting on what happened. She talked about how she continues to feel humilated about all of this and really didn't want to share that with family. Acknowledged how she seemed like a strong resilant woman, but sometimes it is difficult to take all of the stress she has taken on without support. She eventually agreed to have a release signed for her Brother Carrington Adrian who lives in [place]. His contact number is [phone]. She called him in Dr. Martin's office and left a detailed message regarding why she was admitted to the hospital. During the call she broke down in tears. She is fearful now that all of her family will know and they will think she is a "loser." She talked about her willingness to follow up outpatient and her need to start going to AA. She is hoping to still discharge today if we are able to connect with her brother. Spoke with Jie (corporate coordinator) at [facility]. Gave her some updated clinical information. They will give her an intake for 02/01 @ 8:30am. They will have their entitlements person help her with insurance if she needs it. Talked with Barbie's Brother Carrington. He was completely shocked over hearing of this incident. He said she has never done anything like this before and he has never heard her talk of suicide. I explained that she was very resistant to the idea of sharing this with family, due to how embarrassed she was. He said that he will be sharing this with her siblings because he feels that everyone should be supporting her. He knew she was a little down, but had no idea of what she was dealing with. He is somewhat aware of her financial situation due to what he has heard from his Sister, but not aware of the extent of what is happening. He is not opposed to her leaving the hospital today. He is willing to check in via phone tonight and check in with her in person tomorrow. I informed him of her follow up appts. at [facility]. He said he will also ensure she follows through. Asked about her risks around drinking? He said she over does it at times with drinking, but there have been no safety concerns around drinking. I let him know she will most likely discharge today.
[2018-01-25 12:18] VITALS: BP 143/85
[2018-01-25] MEDS ORDERED: NICOTINE PATCH1 EAC2 TOP (14:26)
[2018-01-25] MEDS ORDERED: NAPROXEN500 M2 PO (14:26)
--- NOTE | 2018-01-25 14:27 | Patient Discharge Instructions ---
Psych Discharge Inst General Discharge Information Reason for Admission: overdose on Chantix Psy Discharge Primary Diag+ Unspecified Depressive DO Psy Discharge Secondary Diag+ Alcohol Use Disorder Summary Tests/Major Procedures Lab Serum Alcohol 230.0 MG/DL 01/23/18 0210 Studies Pending at DC: None Patient Instructions Contact Information Your Psychiatrist on [facility] was Veronica PRO,Elías * If you are experiencing an emergency related to this hospitalization, please call [phone] to contact the treating psychiatrist or the psychiatrist-on- call. * To Request a copy of your medical records, please contact the Medical Records Department at [phone]. * To request results of studies pending at the time of discharge, please call [phone]. * Continue your Medications until directed to stop by your Healthcare provider. General Medication Information Please continue to take your new medications and your continued home medications , unless otherwise indicated on your discharge medication list, or unless directed by your MD or AUTHOR AGENT to stop them. Special Instructions Diet Regular Activity Normal - Tobacco Use Treatment Offered Post DC Medications Offered: Script Given-See Med List Post DC Tobacco Treatment Plan: Refused Tobacco Tx Pgm - EtOH/Drug Use D/O Treatment Offered Post DC Medications Offered: Ref Med EtOH/Drug Use D/O Post DC EtOH/SubAbuse TX Plan: Other SubAbuse/Dual Pgm Metabolic Screening ([X]) Not Applicable, patient not on a neuroleptic. Advance Directives Does the Patient have Medical Advance Directives No/Refused further info Does Pt have Psychiatric Advance Directives? No/Refused further info Does Patient have a Designated Surrogate Decision Maker: No Information About Psychiatric Advance Directives Provided? Refused Discharge Plan Post Hospital Treatment Plan: Please see the referral section
--- NOTE | 2018-01-25 14:31 | DISCHARGE SUMMARY REPORT-PSYCH ---
Visit Information Visit Dates/Diagnosis' Admission Date: 01/23/18 Discharge Date: 01/25/18 Reason for Admission: overdose on Chantix Psy Discharge Primary Diag: Unspecified Depressive DO Psy Discharge Secondary Diag: Alcohol Use Disorder Hospital Course Significant Lab Findings: There are no significant lab abnormalities Course Complications: The patient did not have any complications when she was on the inpatient psychiatric unit Consultations: The patient had a history and physical examination by the cork grinder. Please reported to the patient's electronic record for the details of the H&P Allergies: Coded Allergies: Iodinated Contrast- Oral and IV Dye (UNKNOWN 01/23/18) amoxicillin (UNKNOWN 01/23/18) niacin (FELT LIKE BODY ON FIRE FOR HOURS, FAINTING 01/23/18) Hospital Course/TX Response: Mental Status Examination The patient was alert and oriented to time, place, and person. She had steady gait. She was calm and cooperative but focused on discharge. She showed normal psychomotor activity, there were no abnormal behaviors, Normal speech, not pressured, not slurred, Good range of affect. She reported that she was anxious and depressed, she denied thoughts of suicide today, she denied thoughts of homicide, patient denied hallucinations, she did not seem to be responding to internal stimuli. The patient denies feeling paranoid, there were no delusions during the interview. The patient did not have difficulties with thought organization, she was coherent. She seems to have partial insight. She seems to have reasonable judgment. She is seems to have reasonable attention and concentration as well as good information processing. There was no evidence of short-term memory impairments. Assessment: A 57-year-old white female who presented to the emergency room after an overdose on Chantix and Percocet. She also was drinking at the time. She reported that she has been struggling with significant financial stress and a very limited social supports. This was her first suicide attempt. She has had received outpatient treatment following the of her 1999 DSM 5 Diagnosis(es): Unspecified depressive disorder Alcohol use disorder Treatment Plan: Continue Inpatient psychiatric care with safety checks every 15 minutes Nursing assessments, vital signs, and patient education and Group therapy, milieu therapy, and activity therapy Biopsychosocial assessment, collateral information, and aftercare planning by ASSISTANT DISTRICT ATTORNEY The patient will be evaluated daily by a psychiatrist to reevaluate mental status and monitor medications Continue monitoring for alcohol withdrawal with as needed doses of Ativan for signs of withdrawals. Continue Naprosyn 500 mg every morning Discharge HBIPS - Tobacco Use Treatment Offered Post DC Medications Offered: Script Given-See Med List Post DC Tobacco Treatment Plan: Refused Tobacco Tx Pgm - EtOH/Drug Use D/O Treatment Offered Post DC Medications Offered: Ref Med EtOH/Drug Use D/O Post DC EtOH/SubAbuse TX Plan: Other SubAbuse/Dual Pgm Metabolic Screening - Screen if on a Neuroleptic Medication - Metabolic screening should include: - Blood Pressure, BMI, Glucose or Hgb A1c, & a - Lipid profile from within the past 365 days. Metabolic Screening ([X]) Not Applicable, patient not on a neuroleptic. Discharge Instructions General Discharge Information Multiple Neuroleptics: ([X]) Not Applicable Discharge Diet Regular Discharge Activity Normal DC Disposition: Discharge home Referrals Ordered Referrals Provider Referral 02/01/18 For Groups: [[facility]] [facility] intake appt. 02/01/18 8:30am [address] [place] [id number] Prescriptions Continue taking these medications: Magnesium (Magnesium) (Unknown Strength) TAB Unknown Dose ORAL DAILY Comments: PER PT Cyanocobalamin (Vitamin B-12) (Unknown Strength) TAB Unknown Dose ORAL DAILY Comments: PER PT Ascorbic Acid (Vitamin C) 500 MG TAB 1 Tablet ORAL DAILY Comments: PER PT Multiple Vitamin (Multivitamins) 1 EACH TABLET 1 Tablet ORAL DAILY [CALCIUM] 1 Tablet ORAL DAILY Comments: 1,000 MG Cholecalciferol (Vitamin D3) (Vitamin D3) 400 UNIT TABLET 3 Tablet ORAL DAILY Start taking the following new medications: Nicotine (Nicotine Patch) 14 MG/24 HOUR PATCH.TD24 14 Milligram On the skin DAILY Qty = 14 No Refills Naproxen (Naproxen) 500 MG TABLET 500 Milligram ORAL DAILY Qty = 14 No Refills Studies Pending at Discharge None Copies To: [facility]
--- NOTE | 2018-01-25 15:24 | SOCIAL WORKER PROG NOTE PSYCH ---
Social Work Progress Note Faxed Referral(s) Referred To: [facility] Transition of Care Documents sent: Health Summary Faxed to: Care Fax #: [phone] Faxed by: Brenna Krause Date faxed: 01/25/18 Time Faxed: [phone]
--- NOTE | 2018-01-28 19:03 | SOCIAL WORKER PROG NOTE PSYCH ---
Social Work Progress Note Progress Note DISCHARGE COMPLETED Thank you. You have completed your discharge for this episode of care. Member Name Member ID Member Subscriber Name Subscriber ID CANDICE LOMAS [id number] CANDICE LOMAS [id number] Related Authorization # Related Client Authorization # Discharge # Discharge Date [id number] 01/28/2018 The wrong discharge date was entered....The discharge date was entered as 2017 and should have been entered as 01/25/2018. MIKAELA called and spoke to Luis Garcia ( ) at [facility] and informed him of the error. Luis will be forwarding the information to the day staff to enter the correct discharge date.
== END 2018-01-25 13:50 | DRG 754 ==
LOC: ERH 01:51 → CP SOUTH 14:58 → ERHI 14:58 → ENTRNSPT 16:59 → CMPTRNSPT 17:07 → ENRESERV 23:59 → CMPBEDREQ 01-24 10:55 → CP SOUTH 01-24 16:31
PROVIDERS: Emergency Medicine; Internal Medicine
DX: F32.9 Major depressive disorder, single episode, unspecified (principal); Z72.89 Other problems related to lifestyle
CPT/HCPCS: 36415; 80307; 81003; 81025; 93005; 93010; 96361; 96374; 96375; 96376; G0480; J2405; J2765; J3490